=== PATIENT | male | born 1960 | race Caucasian/White ===

== ENCOUNTER → 2017-10-10 | Outpatient (CLI) | END | disposition home or self-care (01) ==

== ENCOUNTER → 2018-01-06 | Outpatient (CLI) | END | disposition home or self-care (01) ==

== ENCOUNTER 2018-01-07 05:27 | Inpatient (IN) | END 2018-01-09 17:15 | disposition home health service (06) | DRG 470 ==

== ENCOUNTER → 2018-01-21 | Outpatient (CLI) | END | disposition home or self-care (01) ==

== ENCOUNTER → 2018-02-10 | Outpatient (CLI) | END | disposition home or self-care (01) ==